=== PATIENT | male | born 1945 | race Caucasian/White ===

== ENCOUNTER 2023-04-03 18:18 | Emergency (ER) | payer MEDICARE, OTHER ==
[2023-04-03] MEDS ORDERED: Meclizine HCl 25 MG TAB ONE (18:37)
[2023-04-03] MEDS ORDERED: Ondansetron ODT 4 MG TAB ONE (18:37)
== END 2023-04-03 19:37 | disposition home or self-care (01) ==
LOC: BURERS 18:18
DX: R42 Dizziness and giddiness (principal); I10 Essential (primary) hypertension; R29.700 NIHSS score 0
CPT/HCPCS: 93005; Q0162